=== PATIENT | female | born 1965 | race Caucasian/White ===

== ENCOUNTER 2024-05-17 11:18 | Emergency (ER) | payer MEDICARE, MEDICAID, SELFPAY ==
[2024-05-17 11:22] VITALS: BP 154/95; PULSE 77; TEMP 36.6; O2SAT 99; BMI 32.0
--- NOTE | 2024-05-17 11:35 | ED.GENADUL1 ---
HPI HPI - General Adult General Chief complaint: Animal Bite Stated complaint: DOG BITE - HAND Time Seen by Provider: 05/17/24 11:28 Source: patient Mode of arrival: walk-in Limitations: no limitations History of Present Illness HPI narrative: 58-year-old female presents to the emergency department for dog bite. She was bitten on the dorsum of her left hand by her own dog. It has been more than 10 years since a tetanus shot. No other injury was sustained. No weakness or numbness in her fingers. Related Data Home Medications ?Medication ?Instructions ?Recorded ?Confirmed omeprazole 40 mg capsule,delayed 40 mg PO QAM 05/17/24 05/17/24 release Previous Rx's ?Medication ?Instructions ?Recorded ciprofloxacin HCl 500 mg tablet 500 mg PO Q12H #14 tabs 05/17/24 (Cipro) clindamycin HCl 300 mg capsule 300 mg PO TID 7 days #21 caps 05/17/24 Allergies Allergy/AdvReac Type Severity Reaction Status Date / Time Penicillins Allergy Severe Hives Verified 05/17/24 11:22 Sulfa (Sulfonamide Allergy Severe Hives Verified 05/17/24 11:22 Antibiotics) Opioid HPI Opioid Management Most Recent Opioid Data: No Data to Display Review of Systems ROS Narrative A ten point review of systems is negative except as noted above. PFSH PFSH Social History Little interest or pleasure in doing things: not at all Feeling down, depressed, or hopeless: not at all Exam Narrative Exam Narrative: Nurses note and vital signs reviewed and patient is not hypoxic. General: The patient appears well and in no apparent distress. Patient is resting comfortably on cart. Skin: Warm, dry, no pallor noted. There is no rash noted. Head: Normocephalic, atraumatic Eye: Normal conjunctiva, no drainage, EOMI. PERRL Ears, Nose, Mouth, and Throat: oral mucosa is moist. Nares patent. Mouth without vesicles. Ear canals patent. Tm's without Erythema Cardiovascular: Regular Rate and Rhythm Respiratory: Patient is in no distress, no accessory muscle use, lungs are clear to auscultation, no wheezing, rales or rhonchi Back: non-tender, no CVA tenderness bilaterally to percussion. GI: Normal bowel sounds, no tenderness to palpation, no masses appreciated. No rebound, guarding, or rigidity noted. Musculoskeletal: The left hand is examined. There are 2 linear relatively superficial lacerations on the dorsum. There is no active bleeding and fingers have full range of motion. No wounds on the palmar surface. Neurological: A&O, normal speech Psychiatric: Cooperative Constitutional Vital Signs, click to edit/add: Last Vital Signs Temp 97.9 F 05/17/24 11:22 Pulse 77 05/17/24 11:22 Resp 20 05/17/24 11:22 BP 154/95 H 05/17/24 11:22 Pulse Ox 99 05/17/24 11:22 Course Vital Signs Vital signs: Vital Signs Temperature 97.9 F 05/17/24 11:22 Pulse Rate 77 05/17/24 11:22 Respiratory Rate 20 05/17/24 11:22 Blood Pressure 154/95 H 05/17/24 11:22 Pulse Oximetry 99 05/17/24 11:22 Temperature 97.9 F 05/17/24 11:22 Pulse Rate 77 05/17/24 11:22 Respiratory Rate 20 05/17/24 11:22 Blood Pressure 154/95 H 05/17/24 11:22 Pulse Oximetry 99 05/17/24 11:22 Medical Decision Making MDM Narrative Medical decision making narrative: X-ray per radiologist shows no acute findings. She is placed on prophylactic Cipro and clindamycin and tetanus status was updated. Sutures are not indicated in this case. The risk of infection outweighs benefits. Treatment diagnosis and follow-up were discussed with the patient. Differential Diagnosis Differential Diagnosis: Dog bite, fracture Imaging Data Left hand x-ray: Radiologist's impression: Dorsal soft tissue swelling with air Discharge Plan Discharge Chief Complaint: Animal Bite Clinical Impression: Dog bite Patient Disposition: Home, Self-Care Time of Disposition Decision: 11:43 Condition: Good Mode of Transportation: Private Vehicle Prescriptions / Home Meds: New ciprofloxacin HCl [Cipro] 500 mg tablet 500 mg PO Q12H Qty: 14 0RF clindamycin HCl 300 mg capsule 300 mg PO TID 7 Days Qty: 21 0RF No Action omeprazole 40 mg capsule,delayed release(DR/EC) 40 mg PO QAM Print Language: Telugu Instructions: Animal Bite (ED)
[2024-05-17] MEDS: ADACEL DIPH,PERTUSS(ACELL),TET VAC/PF 0.5 ML ADULT SYRINGE IM (11:59)
[2024-05-17] MEDS: BACITRACIN 0.9 GM PACKET 1 PACKET TOPICAL (12:09)
== END 2024-05-17 12:20 | disposition home or self-care (01) ==
PROVIDERS: Emergency Provider Emergency Medicine; PCP Family Medicine
DX: S61.412A Laceration without foreign body of left hand, initial encounter (principal); W54.0XXA Bitten by dog, initial encounter; Z23 Encounter for immunization
CPT/HCPCS: 73130; 90471; 90715; 99283

== ENCOUNTER 2024-06-17 11:02 | Outpatient (OUT) | payer MEDICARE, MEDICAID, SELFPAY ==
[2024-06-17 11:54] LABS: Basophils Percent Auto 0.5 % (0.2-2.0); Eosinophils Absolute Auto 0.2 10^3/uL (0.0-0.7); Hematocrit 37.8 % (36.0-48.0); Immature Granulocytes Abs Auto 0.02 10^3/uL (0.00-0.03); Immature Granulocytes Pct Auto 0.5 % (0.0-0.5); Lymphocytes Absolute Auto 0.8 10^3/uL (1.2-3.8); Lymphocytes Percent Auto 21.1 % (20.5-60.0); Mean Corpuscular HGB Conc 34.4 g/dL (29.9-35.2); Mean Corpuscular Hemoglobin 30.2 pg (26.7-34.0); Mean Corpuscular Volume 87.9 fL (81.0-99.0); Mean Platelet Volume 9.5 fL (9.5-13.5); Monocytes Absolute Auto 0.4 10^3/uL (0.3-0.8); Monocytes Percent Auto 9.8 % (1.7-12.0); Neutrophils Absolute Auto 2.5 10^3/uL (1.4-6.5); Neutrophils Percent Auto 63.1 % (43.0-75.0); Platelet Count 203 10^3/uL (150-450); Red Cell Distribution Width 11.9 % (11.0-15.0)
[2024-06-17 12:30] LABS: Alanine Aminotransferase 18 U/L (14-59); Albumin Level 3.8 g/dL (3.4-5.0); Alkaline Phosphatase 79 U/L (46-116); Anion Gap 12.5; Aspartate Amino Transferase 17 U/L (15-37); BUN Creatinine Ratio 13.8; Bilirubin Direct 0.1 mg/dL (0.0-0.2); Bilirubin Total 0.5 mg/dL (0.2-1.0); Calcium 9.1 mg/dL (8.5-10.1); Carbon Dioxide 27.4 mmol/L (21.0-32.0); Chloride 105 mmol/L (98-107); Chol HDL Ratio 2.7; Cholesterol 213 mg/dL (<=200); Estimated GFR (African America >60 (>=60 mL/min/1.73m^2); Estimated GFR (Non-African Ame >60 (>=60 mL/min/1.73m^2); Globulin 3.7 g/dL; Glucose 88 mg/dL (74-106); HDL Cholesterol 78 mg/dL (40-60); Potassium 3.9 mmol/L (3.5-5.1); Sodium 141 mmol/L (136-145); Thyroid Stimulating Hormone 1.139 uIU/mL (0.358-3.740); Total Protein 7.5 g/dL (6.4-8.2); Triglycerides 53 mg/dL (<=150); VLDL CHOLESTEROL 10.6 mg/dL
== END 2024-06-17 11:03 | disposition home or self-care (01) ==
LOC: LAB 11:04
PROVIDERS: PCP Family Medicine; Visit Provider Family Medicine
DX: Z79.899 Other long term (current) drug therapy (principal); E66.811 Obesity, class 1; E66.09 Other obesity due to excess calories; Z68.33 Body mass index [BMI] 33.0-33.9, adult
CPT/HCPCS: 36415; 80048; 80061; 80076; 84443; 85025

== ENCOUNTER 2024-06-20 08:52 | Outpatient (OUT) | payer MEDICARE, MEDICAID, SELFPAY ==
--- NOTE | 2024-06-20 08:59 | MM_ITS ---
Patient Name: ANISA HORN MR#: [id number] : 1965 Exam Date: 06/20/2024 Ordering Doctor: DR CUONG HANKS . RADIOLOGY REPORT PROCEDURE: MM TOMOSYNTHESIS SCREENING BI COMPARISON: MG MAMM SCREEN 3D JOSE CAD, 07/30/2021. MG MAMM SCREEN JOSE W CAD, 10/09/2018. MG MAMM SCREEN JOSE W CAD, 09/05/2017. MG MAMM JOSE SCRN W CAD DIG, 11/17/2015. INDICATIONS: Screening Calculator Name NCI Breast Cancer Risk Assessment Tool 5 Year Breast Cancer Risk 1.20% Lifetime Breast Cancer Risk 6.90% Personal Breast Cancer No Personal Ovarian Cancer No Treatments None Family Cancers None LOCATION: [facility] BREAST COMPOSITION: There are scattered areas of fibroglandular density. FINDINGS: DIAGNOSTIC CATEGORY 0--INCOMPLETE: NEED ADDITIONAL IMAGING EVALUATION. LEFT BREAST: No significant suspicious finding. RIGHT BREAST: Focal asymmetric upper-outer quadrant right breast, middle depth. RECOMMENDATIONS: ADDITIONAL MAMMOGRAPHIC VIEWS REQUIRED: RIGHT BREAST - spot-compression/true lateral views, possible ultrasound recommended. PLEASE NOTE: A NORMAL MAMMOGRAM DOES NOT EXCLUDE THE POSSIBILITY OF BREAST CANCER. A CLINICALLY SUSPICIOUS PALPABLE LUMP SHOULD BE BIOPSIED. Dictated by: Isak Schmitz DO on 06/20/2024 at 16:05 Approved by: Isak Schmitz DO on 06/20/2024 at 16:09
== END 2024-06-20 08:53 | disposition home or self-care (01) ==
LOC: MAMMO 08:52
PROVIDERS: PCP Family Medicine; Visit Provider Family Medicine
DX: Z12.31 Encounter for screening mammogram for malignant neoplasm of breast (principal); R92.8 Other abnormal and inconclusive findings on diagnostic imaging of breast
CPT/HCPCS: 77063; 77067